=== PATIENT | male | born 1940 | race Caucasian/White ===

== ENCOUNTER 2023-08-02 06:46 | Emergency (ER) | payer MEDICARE, BC ==
[~2023-08-02] VITALS: Ht 180.3 cm; Wt 122.7 kg
[2023-08-02 06:46] VITALS: TEMP 98.4
[~2023-08-02 06:46] MED LIST: 00186-0372-20 IH; ACTOS30 MG PO; ATIVAN 1MG T1 MG/TAB PO; COZAAR 25MG25 MG/TAB PO; GLUCOPHAGE500 MG/TAB PO; GLUCOTROL 5M5 MG/TAB PO; GLUCOTROL XL5 MG/TAB PO; HYDROCHLOROTH12.5 MG PO; LIPITOR 40MG TA40 MG PO; OCUFLOX OPHTH DR5 ML OD; SYNTHROID0.1 MG/TAB PO; TOPROL XL 25MG25 MG PO; TOPROL XL 50MG50 MG PO
[2023-08-02 07:59] LABS: HEMATOCRIT 38.9 % (42.0-52.0); HEMOGLOBIN 13.3 g/dl (13.5-18.0); MEAN CELL VOLUME 91 fl (80.0-100.0); MEAN CORPUSCULAR HEMOGLOBIN 31 pg (27-31); MEAN CORPUSCULAR HGB CONC 34 g/dl (33.0-37.0); MEAN PLATELET VOLUME 10.7 fl (7.4-10.4); PLATELET COUNT 172 K/mm3 (130-400); RED BLOOD COUNT 4.26 M/mm3 (4.20-5.60); REDCELL DISTRIBUTION WIDTH-CV 12.6 % (11.5-14.5)
[2023-08-02 08:04] LABS: ALANINE AMINOTRANSFERASE 11 U/L (0-55); ALBUMIN 3.5 g/dL (3.4-4.8); ALKALINE PHOSPHATASE 79 U/L (40-150); ANION GAP 9 mmol/L (7-16); AST,SGOT 22 U/L (5-34); BILIRUBIN,TOTAL 0.6 mg/dL (0.2-1.2); BLOOD UREA NITROGEN 27 mg/dL (8-26); CALCIUM 8.9 mg/dL (8.4-10.2); CHLORIDE 103 mEq/L (98-107); GLUCOSE 130 mg/dL (70-99); POTASSIUM 4.3 mEq/L (3.5-4.5); SODIUM 135 mEq/L (136-145); TOTAL PROTEIN 6.7 g/dl (6.2-8.1)
[2023-08-02 08:15] LABS: TROPONIN-I < 0.010 ng/mL (0.00-0.033)
[2023-08-02 08:44] VITALS: BP 133/56; PULSE 68
[2023-08-02 09:12] LABS: MAGNESIUM 1.9 mg/dL (1.6-2.6)
== END 2023-08-02 08:46 | disposition home or self-care (01) ==
LOC: COL.ER 06:46
PROVIDERS: Emergency Medicine
DX: R42 Dizziness and giddiness (principal)